=== PATIENT | female | born 1930 | race African-American/Black ===

== ENCOUNTER → 2016-12-05 | Outpatient (CLI) | payer MEDICARE, BC ==
[~2016-12-05] MED LIST: ASPIRIN81 M1 PO; ASPIRIN81 M2 PO; BUMETANIDE2 M1 PO; CARDURA1 MG PO; CARVEDILOL25 MG PO; COMBIGAN EYE DRO5 ML OP; ELIQUIS2.5 MG PO; FERRO-TIME325 MG PO; LIPITOR40 MG PO; LOSARTAN POTASS50 MG PO; PARICALCITOL1 MCG PO; PLAVIX PO; PROCRIT SUBQ; RANITIDINE HCL150 M1 PO; SENSIPAR30 MG PO; SLOW-MAG71.5 MG; ULORIC40 MG PO; VITAMIN D1000 UNIT PO
[2016-12-05 07:41] LABS: HEMATOCRIT 35.1 % (35.0-45.0); HEMOGLOBIN 11.2 gm/dL (12.0-16.0)
== END | disposition home or self-care (01) ==
LOC: CSSDAY 07:11
PROVIDERS: Internal Medicine Nephrology
DX: N18.5 Chronic kidney disease, stage 5 (principal); Z51.81 Encounter for therapeutic drug level monitoring; D63.1 Anemia in chronic kidney disease; Z79.899 Other long term (current) drug therapy
CPT/HCPCS: 36415; 85014; 85018; J0885

== ENCOUNTER → 2016-12-19 | Outpatient (CLI) | payer MEDICARE, BC ==
[2016-12-19 07:42] LABS: HEMATOCRIT 34.7 % (35.0-45.0); HEMOGLOBIN 10.8 gm/dL (12.0-16.0)
== END | disposition home or self-care (01) ==
LOC: CSSDAY 07:10
PROVIDERS: Internal Medicine Nephrology
DX: N18.5 Chronic kidney disease, stage 5 (principal); D63.1 Anemia in chronic kidney disease; Z79.899 Other long term (current) drug therapy
CPT/HCPCS: 36415; 85014; 85018; 96372; J0885

== ENCOUNTER → 2017-01-02 | Outpatient (CLI) | payer MEDICARE, BC ==
[2017-01-02 07:25] LABS: BASOPHIL% 0.2 % (0-2.5); EOSINOPHIL# 0.1 X10e3 (0-0.7); EOSINOPHIL% 2.2 % (0.0-7.0); HEMOGLOBIN 10.9 gm/dL (12.0-16.0); LYMPHOCYTE# 1.3 X10e3 (1.0-3.5); MEAN CELL VOLUME 90.5 FL (83-96); MEAN CORPUSCULAR HEMOGLOBIN 28.2 PG (28-34); MEAN CORPUSCULAR HGB CONC 31.2 g/dL (30-36); MEAN PLATELET VOLUME 10.5 FL (6.5-11.5); MONOCYTE# 0.7 X10e3 (0-1.0); MONOCYTE% 14.3 % (3.0-12.0); NEUTROPHIL% 58.3 % (40-75); PLATELET COUNT 145 X10e3 (140-420); RED BLOOD COUNT 3.87 X10e (3.90-5.30); RED CELL DISTRIBUTION WIDTH 17.7 % (11.0-15.5); WHITE BLOOD COUNT 5.2 X10e3 (4.0-10.5)
[2017-01-02 07:26] LABS: DIFF IND NO
[2017-01-02 08:12] LABS: ALBUMIN SERUM 3.5 g/dL (3.5-5.0); BILIRUBIN,TOTAL 0.7 mg/dL (0.2-2.0); BUN/CREATININE RATIO 13.62; CALCIUM SERUM 8.3 mg/dL (8.4-10.2); CREATININE SERUM 6.9 mg/dL (0.6-1.4); GLOM FILT RATE Estimated 5.7 mL/min (>60); PHOSPHOROUS 6.2 mg/dL (2.5-4.6); PROTEIN TOTAL SERUM 6.6 g/dL (6.0-8.3); URIC ACID 3.3 mg/dL (2.6-7.2)
[2017-01-02 08:31] LABS: FOLATE (FOLIC ACID) 10.1 ng/mL (>5.8)
[2017-01-04 15:54] LABS: CALCIUM (PTHINTACT) 8.2 mg/dL (8.6-10.4)
== END | disposition home or self-care (01) ==
LOC: CSSDAY 06:48
PROVIDERS: Internal Medicine Nephrology
DX: N18.5 Chronic kidney disease, stage 5 (principal); D63.1 Anemia in chronic kidney disease; Z79.899 Other long term (current) drug therapy
CPT/HCPCS: 36415; 80053; 82306; 82310; 82607; 82728; 82746; 83540; 83550; 83970; 84100; 84550; 85025; 96372; J0885

== ENCOUNTER → 2017-01-16 | Outpatient (CLI) | payer MEDICARE, BC ==
[2017-01-16 07:42] LABS: HEMATOCRIT 35.2 % (35.0-45.0); HEMOGLOBIN 10.9 gm/dL (12.0-16.0)
== END | disposition home or self-care (01) ==
LOC: CSSDAY 07:07
PROVIDERS: Internal Medicine Nephrology
DX: N18.5 Chronic kidney disease, stage 5 (principal); D63.1 Anemia in chronic kidney disease; Z79.899 Other long term (current) drug therapy
CPT/HCPCS: 36415; 85014; 85018; 96372; J0885

== ENCOUNTER → 2017-01-30 | Outpatient (CLI) | payer MEDICARE, BC ==
[2017-01-30 07:32] LABS: HEMATOCRIT 33.7 % (35.0-45.0); HEMOGLOBIN 10.6 gm/dL (12.0-16.0)
== END | disposition home or self-care (01) ==
LOC: CSSDAY 07:11
PROVIDERS: Internal Medicine Nephrology
DX: N18.5 Chronic kidney disease, stage 5 (principal); D63.1 Anemia in chronic kidney disease; Z79.899 Other long term (current) drug therapy
CPT/HCPCS: 36415; 85014; 85018; 96372; J0885

== ENCOUNTER → 2017-02-13 | Outpatient (CLI) | payer MEDICARE, BC ==
[2017-02-13 07:34] LABS: HEMATOCRIT 33.1 % (35.0-45.0); HEMOGLOBIN 10.4 gm/dL (12.0-16.0)
== END | disposition home or self-care (01) ==
LOC: CSSDAY 07:05
PROVIDERS: Internal Medicine Nephrology
DX: N18.5 Chronic kidney disease, stage 5 (principal); D63.1 Anemia in chronic kidney disease; Z79.899 Other long term (current) drug therapy
CPT/HCPCS: 36415; 85014; 85018; 96372; J0885

== ENCOUNTER → 2017-02-27 | Outpatient (CLI) | payer MEDICARE, BC ==
[2017-02-27 07:35] LABS: HEMOGLOBIN 10.8 gm/dL (12.0-16.0)
== END | disposition home or self-care (01) ==
LOC: CSSDAY 07:01
PROVIDERS: Internal Medicine Nephrology
DX: N18.5 Chronic kidney disease, stage 5 (principal); D63.1 Anemia in chronic kidney disease
CPT/HCPCS: 36415; 85014; 85018; 96372; J0885

== ENCOUNTER → 2017-03-02 | Outpatient (CLI) | payer MEDICARE, BC | END | disposition home or self-care (01) | LOC: CSSDAY 07:57 | DX: N18.5 Chronic kidney disease, stage 5 (principal); D63.1 Anemia in chronic kidney disease | CPT/HCPCS: 96374; Q0138 ==

== ENCOUNTER → 2017-03-12 | Outpatient (CLI) | payer MEDICARE, BC | END | disposition home or self-care (01) | LOC: CSSDAY 07:50 | DX: N18.5 Chronic kidney disease, stage 5 (principal); D63.1 Anemia in chronic kidney disease; Z79.899 Other long term (current) drug therapy | CPT/HCPCS: 96374; Q0138 ==

== ENCOUNTER → 2017-03-13 | Outpatient (CLI) | payer MEDICARE, BC ==
[2017-03-13 08:11] LABS: BASOPHIL% 0.3 % (0-2.5); EOSINOPHIL# 0.1 X10e3 (0-0.7); EOSINOPHIL% 2.4 % (0.0-7.0); HEMATOCRIT 37.5 % (35.0-45.0); HEMOGLOBIN 11.6 gm/dL (12.0-16.0); LYMPHOCYTE% 21.4 % (17.0-45.0); MEAN CELL VOLUME 91.3 FL (83-96); MEAN CORPUSCULAR HEMOGLOBIN 28.1 PG (28-34); MEAN CORPUSCULAR HGB CONC 30.8 g/dL (30-36); MEAN PLATELET VOLUME 9.9 FL (6.5-11.5); MONOCYTE# 0.7 X10e3 (0-1.0); MONOCYTE% 14.2 % (3.0-12.0); NEUTROPHIL% 61.7 % (40-75); PLATELET COUNT 185 X10e3 (140-420); RED BLOOD COUNT 4.11 X10e (3.90-5.30); RED CELL DISTRIBUTION WIDTH 18.1 % (11.0-15.5); WHITE BLOOD COUNT 4.9 X10e3 (4.0-10.5)
[2017-03-13 08:19] LABS: DIFF IND NO
[2017-03-13 09:29] LABS: ALBUMIN SERUM 3.3 g/dL (3.5-5.0); BILIRUBIN,TOTAL 0.7 mg/dL (0.2-2.0); BUN/CREATININE RATIO 13.63; CALCIUM SERUM 8.5 mg/dL (8.4-10.2); CREATININE SERUM 6.6 mg/dL (0.6-1.4); PHOSPHOROUS 6.2 mg/dL (2.5-4.6); POTASSIUM 3.9 mmol/L (3.5-5.1); PROTEIN TOTAL SERUM 6.3 g/dL (6.0-8.3); URIC ACID 2.8 mg/dL (2.6-7.2)
[2017-03-13 09:47] LABS: FOLATE (FOLIC ACID) 11.2 ng/mL (>5.8)
[2017-03-19 13:02] LABS: CALCIUM (PTHINTACT) 8.8 mg/dL (8.6-10.4)
== END | disposition home or self-care (01) ==
LOC: CSSDAY 07:38
PROVIDERS: Internal Medicine Nephrology
DX: N18.5 Chronic kidney disease, stage 5 (principal); D63.1 Anemia in chronic kidney disease; Z51.81 Encounter for therapeutic drug level monitoring; Z79.899 Other long term (current) drug therapy
CPT/HCPCS: 36415; 80053; 82306; 82310; 82607; 82728; 82746; 83540; 83550; 83970; 84100; 84550; 85025

== ENCOUNTER → 2017-03-27 | Outpatient (CLI) | payer MEDICARE, BC ==
[2017-03-27 07:57] LABS: HEMATOCRIT 34.5 % (35.0-45.0); HEMOGLOBIN 10.7 gm/dL (12.0-16.0)
== END | disposition home or self-care (01) ==
LOC: CSSDAY 07:00
PROVIDERS: Internal Medicine Nephrology
DX: N18.5 Chronic kidney disease, stage 5 (principal); D63.1 Anemia in chronic kidney disease; Z79.899 Other long term (current) drug therapy
CPT/HCPCS: 36415; 85014; 85018; 96372; J0885; Q4081

== ENCOUNTER → 2017-04-10 | Outpatient (CLI) | payer MEDICARE, BC ==
[2017-04-10 08:03] LABS: HEMATOCRIT 33.1 % (35.0-45.0); HEMOGLOBIN 10.3 gm/dL (12.0-16.0)
== END | disposition home or self-care (01) ==
LOC: CSSDAY 07:31
PROVIDERS: Internal Medicine Nephrology
DX: N18.5 Chronic kidney disease, stage 5 (principal); D63.1 Anemia in chronic kidney disease; Z79.899 Other long term (current) drug therapy
CPT/HCPCS: 36415; 85014; 85018; 96372; J0885

== ENCOUNTER → 2017-04-24 | Outpatient (CLI) | payer MEDICARE, BC ==
[2017-04-24 07:45] LABS: HEMATOCRIT 33.7 % (35.0-45.0); HEMOGLOBIN 10.9 gm/dL (12.0-16.0)
== END | disposition home or self-care (01) ==
LOC: CSSDAY 04-17 08:00
PROVIDERS: Internal Medicine Nephrology
DX: N18.5 Chronic kidney disease, stage 5 (principal); D63.1 Anemia in chronic kidney disease; Z79.899 Other long term (current) drug therapy
CPT/HCPCS: 36415; 85014; 85018; 96372; J0885

== ENCOUNTER → 2017-05-08 | Outpatient (CLI) | payer MEDICARE, BC ==
[2017-05-08 07:53] LABS: HEMATOCRIT 33.7 % (35.0-45.0); HEMOGLOBIN 10.8 gm/dL (12.0-16.0)
== END | disposition home or self-care (01) ==
LOC: CSSDAY 07:06
PROVIDERS: Internal Medicine Nephrology
DX: N18.5 Chronic kidney disease, stage 5 (principal); D63.1 Anemia in chronic kidney disease; Z79.899 Other long term (current) drug therapy
CPT/HCPCS: 36415; 85014; 85018; 96372; J0885

== ENCOUNTER → 2017-05-22 | Outpatient (CLI) | payer MEDICARE, BC ==
[2017-05-22 08:08] LABS: HEMATOCRIT 34.3 % (35.0-45.0)
== END | disposition home or self-care (01) ==
LOC: CSSDAY 07:25
PROVIDERS: Internal Medicine Nephrology
DX: N18.5 Chronic kidney disease, stage 5 (principal); D63.1 Anemia in chronic kidney disease
CPT/HCPCS: 36415; 85014; 85018; 96372; J0885

== ENCOUNTER → 2017-06-06 | Outpatient (CLI) | payer MEDICARE, BC ==
[2017-06-06 07:56] LABS: HEMATOCRIT 36.7 % (35.0-45.0); HEMOGLOBIN 11.8 gm/dL (12.0-16.0); MEAN CELL VOLUME 89.8 FL (83-96); MEAN CORPUSCULAR HEMOGLOBIN 28.9 PG (28-34); MEAN CORPUSCULAR HGB CONC 32.2 g/dL (30-36); RED BLOOD COUNT 4.09 X10e (3.90-5.30); RED CELL DISTRIBUTION WIDTH 18.8 % (11.0-15.5); WHITE BLOOD COUNT 4.9 X10e3 (4.0-10.5)
[2017-06-06 08:41] LABS: CALCIUM SERUM 8.3 mg/dL (8.4-10.2); PHOSPHOROUS 6.4 mg/dL (2.5-4.6); URIC ACID 4.2 mg/dL (2.6-7.2)
[2017-06-06 09:01] LABS: FOLATE (FOLIC ACID) 12.2 ng/mL (>5.8)
[2017-06-09 07:41] LABS: CALCIUM (PTHINTACT) 8.4 mg/dL (8.6-10.4)
== END | disposition home or self-care (01) ==
LOC: CSSDAY 06-05 10:00
PROVIDERS: Internal Medicine Nephrology
DX: N18.5 Chronic kidney disease, stage 5 (principal); D63.1 Anemia in chronic kidney disease
CPT/HCPCS: 36415; 82306; 82310; 82607; 82728; 82746; 83540; 83550; 83970; 84100; 84550; 85027; J0885

== ENCOUNTER → 2017-06-19 | Outpatient (CLI) | payer MEDICARE, BC ==
[2017-06-19 07:23] LABS: HEMATOCRIT 32.9 % (35.0-45.0); HEMOGLOBIN 10.7 gm/dL (12.0-16.0)
== END | disposition home or self-care (01) ==
LOC: CSSDAY 06:48
PROVIDERS: Internal Medicine Nephrology
DX: N18.5 Chronic kidney disease, stage 5 (principal); D63.1 Anemia in chronic kidney disease; Z79.899 Other long term (current) drug therapy; Z51.81 Encounter for therapeutic drug level monitoring
CPT/HCPCS: 36415; 85014; 85018; 96372; J0885